=== PATIENT | female | born 1985 | race Caucasian/White ===

== ENCOUNTER 2017-12-30 14:15 | Emergency (ER) | payer OTHER ==
--- NOTE | 2017-12-30 14:20 | PDOC ---
Attending Attestation - Resident Resident Name: Alexandru Duran - ED Attending Attestation I have performed the following: I have examined & evaluated the patient, The case was reviewed & discussed with the resident, I agree w/resident's findings & plan, Exceptions are as noted - HPI HPI: 12/30/17 15:56 Ms Epstein is a 32 yo F h/o eclampsia/HELPP, resultant HTN, h/o CHF and renal insufficiency She has a longstanding ho constipation She presents today with intermittent, worsening, LUQ/LLQ abdominal pain. Pain is sharp/pressure, rated 7/10, no exacerbating or alleviating factors One episode of emesis No fevers/chills, chest pain, SOB, or changes in sensation. The patient reports a recent UTI which was treated - Physicial Exam PE: 12/30/17 16:00 GENERAL: The patient is in no acute distress. LUNGS: Breath sounds equal, clear to auscultation bilaterally. No wheezes, and no crackles. HEART:Regular rate and rhythm, normal S1 and S2 without murmur, rub or gallop. ABDOMEN: Soft, diffusely tender to palpation, worse on the left side of the abdomen EXTREMITIES: Normal range of motion NEUROLOGICAL: Cranial nerves II through XII grossly intact. Normal speech. No focal neurological deficits. MUSCULOSKELETAL: Back non-tender to palpation, no CVA tenderness SKIN: Warm, Dry, normal turgor, no rashes or lesions noted. - Medical Decision Making 12/30/17 16:01 Laboratory Tests 12/30/17 12/30/17 12/30/17 15:18 15:18 15:18 WBC 6.3 Hgb 14.1 Hct 42.1 Plt Count 244 BUN 18 Creatinine 0.9 Urine Blood Negative Urine Nitrite Negative Ur Leukocyte Esterase Negative Urine HCG, Qual 12/30/17 15:18 WBC Hgb Hct Plt Count BUN Creatinine Urine Blood Urine Nitrite Ur Leukocyte Esterase Urine HCG, Qual Negative Pending CT CT demonstrates no diverticulitis, no obstruction Will discharge to home Follow up with PMD Continue bowel regimen Clinical impression: constipation, initial presentation Abdominal pain, initial presentation
--- NOTE | 2017-12-30 14:25 | PDOC ---
History of Present Illness - General Chief Complaint: Pain Stated Complaint: ABDOMINAL PAIN - History of Present Illness Initial Comments: The patient is 32F with a hx of eclampsia/HELPP, subsequent acute CHF, and residual HTN who presents for 3 days of intermittent, worsening, LUQ abdominal pain that radiates towards the rest of the abdomen. The patient describes the pain as sharp/pressure and she has not noticed anything that aggravates/ alleviates the pain. The patient endorses NBNB emesis x1 today. The patient denies fevers/chills, chest pain, SOB, or changes in sensation. The patient reports constipation chronically but has not been taking her fiber/miralax. The patient reports that her stool is pellet-like. The patient reports a recent UTI which was treated 12/30/17 14:23 Past History - Past Medical History Allergies/Adverse Reactions: Allergies Allergy/AdvReac Type Severity Reaction Status Date / Time topiramate Allergy Severe Nausea Verified 12/30/17 14:20 doxazosin Allergy Intermediate Itching Verified 12/30/17 14:17 lisinopril Allergy Intermediate Hives Verified 12/30/17 14:18 Home Medications: Ambulatory Orders Carvedilol 25 mg PO BID 12/30/17 Hydralazine HCl 50 mg PO BID 12/30/17 Losartan Potassium 50 mg PO BID 12/30/17 Nifedipine [Procardia Xl] 30 mg PO BID 12/30/17 Simethicone 125 mg PO DAILY PRN 10 Days #10 capsule 12/30/17 Review of Systems - Review of Systems Able to Perform ROS?: Yes Comments:: GENERAL/CONSTITUTIONAL: No fever or chills. No weakness HEAD, EYES, EARS, NOSE AND THROAT: No change in vision. No ear pain or discharge. No sore throat CARDIOVASCULAR: No chest pain or shortness of breath RESPIRATORY: No cough, wheezing, or hemoptysis GASTROINTESTINAL: per HPI GENITOURINARY: No dysuria, frequency, or change in urination MUSCULOSKELETAL: No joint or muscle swelling or pain. No neck or back pain SKIN: No rash_ NEUROLOGIC: No headache, vertigo, loss of consciousness, or change in strength/ sensation ENDOCRINE: No increased thirst. No abnormal weight change HEMATOLOGIC/LYMPHATIC: No anemia, easy bleeding, or history of blood clots ALLERGIC/IMMUNOLOGIC: No hives or skin allergy 12/30/17 14:24 Is the patient limited Mongolian proficient: No *Physical Exam - Physical Exam Comments: GENERAL: Awake, alert, and fully oriented, in no acute distress HEAD: No signs of trauma, normocephalic, atraumatic EYES: PERRL, EOMI, sclera anicteric, conjunctiva clear ENT: Auricles normal inspection, hearing grossly normal, nares patent, oropharynx clear without exudates. Moist mucosa NECK: Normal ROM, supple, no lymphadenopathy LUNGS: No distress, speaks full sentences, clear to auscultation bilaterally HEART:Regular rate and rhythm, normal S1 and S2, no murmurs appreciated, peripheral pulses normal and equal bilaterally ABDOMEN: Soft, LUQ/LLQ TTP with diffuse abdominal TTP, normoactive bowel sounds. No guarding, no rebound EXTREMITIES : Normal inspection, Normal range of motion, no edema. No clubbing or cyanosis NEUROLOGICAL: Cranial nerves II through XII grossly intact. Normal speech, normal gait, no focal sensorimotor deficits SKIN: Warm, Dry, normal turgor, no rashes or lesions noted 12/30/17 14:25 ED Treatment Course - LABORATORY CBC & Chemistry Diagram: 12/30/17 15:18 12/30/17 15:18 Medical Decision Making - Medical Decision Making The patient is 32F with a hx of eclampsia/HELPP, subsequent acute CHF, and residual HTN who presents for 3 days of intermittent, worsening, LUQ abdominal pain that radiates towards the rest of the abdomen. ED Course CMP, CBC, Lipase, Amylase, UA/UCx, Upreg CT w/ PO contrast 12/30/17 15:17 No evidence of UTI on UA No leukocytosis 12/30/17 17:51 CT without evidence acute intra-abdominal pathology Plan for DC w/ PCP f/u Plan discussed with patient who is in agreement and verbalized understanding Counseling provided pertaining to her bowel regimen Dispo: Home 12/30/17 18:33 *DC/Admit/Observation/Transfer Diagnosis at time of Disposition: Abdominal pain Qualifiers: Abdominal location: left upper quadrant Qualified Code(s): R10.12 - Left upper quadrant pain - Discharge Dispostion Disposition: HOME Condition at time of disposition: Stable Decision to Admit order: No - Referrals Referrals: Denny Del Toro [Other] - Patient Instructions Printed Discharge Instructions: DI for Abdominal Pain-Adult, DI for Constipation Additional Instructions: You were seen in the Emergency Room today for abdominal pain. Please review the handout provided at discharge. Please maintain your bowel regimen at home including the fiber, miralax daily. Follow up with your primary care doctor within the next 1-3 days. Return to the Emergency Department if you develop fevers, worsening pain, or new concerning symptoms. - Post Discharge Activity
[2017-12-30 14:57] VITALS: BMI 20.8
[2017-12-30 15:26] LABS: PH,URINE 5.5 (4.5-8); URINE APPEARANCE Clear; URINE BILIRUBIN Negative (NEGATIVE); URINE COLOR Brown; URINE GLUCOSE (UA) Negative (NEGATIVE); URINE KETONE Negative (NEGATIVE); URINE LEUK ESTERASE Negative (NEGATIVE); URINE NITRITE Negative (NEGATIVE); URINE UROBILINOGEN 0.2 (0.2-1.0)
[2017-12-30 15:27] LABS: URINE PROTEIN 3+ (NEGATIVE)
[2017-12-30 15:39] LABS: ALK PHOS 50 U/L (32-92); AMYLASE 82 U/L (25-125); ANION GAP 7 MMOL/L (8-16); BILIRUBIN,TOTAL 0.7 mg/dl (0.2-1.0); BLOOD UREA NITROGEN 18 mg/dl (7-18); CALCIUM 8.8 mg/dl (8.4-10.2); CHLORIDE 106 mmol/L (98-107); CO2 21 mmol/L (22-28); CREATININE 0.9 mg/dl (0.6-1.3); GLUCOSE,RANDOM 94 mg/dl (74-106); POTASSIUM 3.8 mmol/L (3.5-5.1); SGOT/AST 19 U/L (10-42); SGPT/ALT 22 U/L (10-40); SODIUM 134 mmol/L (136-145); TOT PROT 6.8 g/dl (6.4-8.3)
[2017-12-30 15:44] LABS: EOS % 3.4 % (0-4.5); HEMATOCRIT 42.1 % (32.4-45.2); HEMOGLOBIN 14.1 GM/dl (10.7-15.3); LYMPH % 25.6 % (8-40); MCH 31.1 pg (25.7-33.7); MCHC 33.5 g/dl (32.0-36.0); MEAN CELL VOLUME 92.9 fl (80-96); MEAN PLT VOLUME 9.1 fl (7.5-11.1); MONO % 7.6 % (3.8-10.2); NEUT % 62.4 % (42.8-82.8); PLATELET COUNT 244 K/MM3 (134-434); RBC 4.53 M/mm3 (3.60-5.2); RDW 12.1 % (11.6-15.6); WHITE BLOOD COUNT 6.3 K/mm3 (4.0-10.8)
[2017-12-30 16:39] LABS: EPI CELLS FEW /HPF; URINE BACTERIA FEW /hpf (NEGATIVE); URINE RBC 0-1 /hpf (0-3); URINE WBC 0-2 (0-5)
[2017-12-30 17:50] LABS: LIPASE 225 U/L (73-393)
[2017-12-30 18:00] VITALS: BP 111/74; PULSE 84; TEMP 98.5
== END 2017-12-30 18:45 | disposition home or self-care (01) ==
LOC: FER 14:15
DX: R10.12 Left upper quadrant pain (principal); I10 Essential (primary) hypertension; I50.9 Heart failure, unspecified
CPT/HCPCS: 36415; 74176-TC; 80053; 81003; 81015; 82150; 83690; 84703; 85025; 87086; 99283-25

== ENCOUNTER 2019-01-05 18:56 | Emergency (ER) | payer OTHER ==
[2019-01-05 19:01] VITALS: BMI 20.5
[2019-01-05] MEDS ORDERED: KETOROLAC TROMETHAMINE 30 MG/1 ML VIAL IVPUSH ONE (21:03)
[2019-01-05] MEDS ORDERED: KETOROLAC TROMETHAMINE 60 MG/2 ML VIAL ONE (21:06)
[2019-01-05] MEDS ORDERED: cloNIDine HCL 0.1 MG TABLET ONE (21:06)
[2019-01-05] MEDS ORDERED: hydrALAZINE HCL 25 MG TABLET (FP) PO ONE (21:17)
[2019-01-05] MEDS ORDERED: KETOROLAC TROMETHAMINE 60 MG/2 ML VIAL IM ONE (21:26)
[2019-01-05] MEDS ORDERED: cloNIDine HCL 0.1 MG TABLET PO ONE (22:25)
[2019-01-05] MEDS ORDERED: HYDROmorphone HCL CARPU-JECT 1 MG/1 ML DISP.SYRIN IM ONE (22:26)
[2019-01-05] MEDS ORDERED: HYDROmorphone HCL CARPU-JECT 1 MG/1 ML DISP.SYRIN ONE (22:34)
[2019-01-05 23:06] VITALS: BP 147/110; PULSE 77; TEMP 98.3
--- NOTE | 2019-01-06 00:33 | PDOC ---
Documentation entered by Carmen Gonzalez SCRIBE, acting as scribe for Leatha Ivan MD. Leatha Ivan MD: This documentation has been prepared by the Lisa khanna Renju, SCRIBE, under my direction and personally reviewed by me in its entirety. I confirm that the documentation accurately reflects all work, treatment, procedures, and medical decision making performed by me. History of Present Illness - General Chief Complaint: Blood Pressure Problem Stated Complaint: HEADACHE, HTN Time Seen by Provider: 01/05/19 19:23 History Source: Patient, Spouse Exam Limitations: No Limitations - History of Present Illness Initial Comments: 01/05/19 19:54 The patient is a 33 year old female with a past medical history of eclampsia/ HELPP, subsequent acute CHF, and hypertension who presents to the emergency department for evaluation of worsening headache since 12pm. Patient reports acute onset of severe non-exertional headache ranked 10/10 in severity described as a constant pressure and throbbing since noon. She notes her headache is exacerbated with light and loud noises. Patient reports associated symptoms of diaphoresis, dizziness, subjective fever, nausea, bilateral lower extremity edema, and felt intermittent episodes of shortness of breath since noon. She reports taking fioricet and 2 excedrin which did not alleviate her pain, which she notes usually aids with her migraines, prompting her to leave work at 630pm to visit the ED for further evaluation. Patient states she follows up with her neurologist every 3 months for botox injections secondary to her migraines with her last visit being 3 weeks ago. She states she followed up with her PCP 1 month ago. Patient states she has been compliant with all of her blood pressure medications. Denies aphasia, word recall problems, recent sick contact, changes to medication , stiff neck, or rash. Denies chest pain, vomiting, diarrhea, and constipation. Denies urinary urgency/frequency, dysuria, and hematuria. Allergies: Topiramate, doxazosin, lisinopril Social History: No reported EtOH, cigarette, or drug use. Surgical History: Hernia, reconstructive surgery after childbirth, PCP: Dr. Rothman Past History - Past Medical History Allergies/Adverse Reactions: Allergies Allergy/AdvReac Type Severity Reaction Status Date / Time topiramate Allergy Severe Nausea Verified 01/05/19 19:04 doxazosin Allergy Intermediate Itching Verified 01/05/19 19:04 lisinopril Allergy Intermediate Hives Verified 01/05/19 19:04 Home Medications: Ambulatory Orders Carvedilol 25 mg PO BID 12/30/17 Hydralazine HCl 50 mg PO BID 12/30/17 Losartan Potassium 50 mg PO BID 12/30/17 Nifedipine [Procardia Xl] 60 mg PO DAILY 12/30/17 COPD: No HTN: Yes Other medical history: KID FAILURE,HEART FAILURE - Surgical History Abdominal Surgery: Yes (HERNIA RECONSTUCTIVE SURGERY AFTER CHILD ) - Suicide/Smoking/Psychosocial Hx Smoking History: Never smoked Hx Alcohol Use: No Drug/Substance Use Hx: No Substance Use Type: Alcohol Review of Systems - Review of Systems Able to Perform ROS?: Yes Comments:: 01/05/19 19:55 All systems are reviewed and negative except as noted in the HPI. *Physical Exam - Vital Signs Last Vital Signs Temp Pulse Resp BP Pulse Ox 97.9 F 89 17 148/106 H 100 01/05/19 18:57 01/05/19 18:57 01/05/19 18:57 01/05/19 19:13 01/05/19 18:57 - Physical Exam Comments: 01/05/19 19:55 GENERAL: The patient is awake, alert, and fully oriented, in no acute distress. HEAD: Normal with no signs of trauma. EYES: (+)Pupils 3mm equal briskly reactive, extraocular movements intact, sclera anicteric, conjunctiva clear with no pallor. ENT: Ears normal, nares patent, oropharynx clear without exudates. Moist mucous membranes. NECK: Normal range of motion, supple without lymphadenopathy, JVD, or masses. LUNGS: Breath sounds equal, clear to auscultation bilaterally. No wheeze/ crackles. HEART: Regular rate and rhythm, normal S1 and S2 without murmur or rub. ABDOMEN: Soft/nontender/nondistended. BS wnl. No guarding or rebound. No palpable masses. No hepatosplenomegaly. EXTREMITIES: Normal range of motion, no edema. No clubbing or cyanosis. No cords, erythema, or tenderness. NEUROLOGICAL: Cranial nerves II through XII grossly intact. Normal speech, normal gait. No neurological deficits. PSYCH: Normal mood, normal affect. SKIN: Warm, Dry, normal turgor, no rashes or lesions noted. Medical Decision Making - Medical Decision Making As noted above, this 33-year-old woman with a history of eclampsia and subsequent hypertension presents with a one-day history of headache and elevated blood pressure. Patient also has a history of migraine headaches( Botox injections every 3 months), although this headache is bilateral and more severe than her usual migraines. She typically takes Fioricet for her migraine headaches; she states that this was ineffective for the pain that she is feeling today. She states that she takes her antihypertensive medications daily except for the nifedipine which she believes may give her headaches. Exam is noted Because of the patient's elevated blood pressure and unusual quality of the headache, noncontrast head CT was performed prior to treatment of the headache pain. Interpretation of the noncontrast head CT by Dr. Can of the radiology staff : No intracranial bleed or other acute abnormality. Patient was given Toradol 60 mg IM along with hydralazine 25 mg by mouth.. After approximately 45 minutes, the patient noted some decrease in pain although she still had significant headache. She was then given Dilaudid 1 mg IM (which patient states "usually needs to be given to me when I have bad headaches"). Clonidine 0.1 mg given orally. Patient had significant decrease in her headache pain after IM Dilaudid. Blood pressure was measured at 147/110 millimeters mercury, significantly lower than it had been. Patient feels good enough to be discharged home in the company of her . 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 Meanwhile, she should take her high blood pressure medications as previously prescribed and return to ER if she has persistent severe headache or persistently elevated blood pressure. Also, if she has lightheadedness, shortness of breath or palpitations, she should return to the emergency room *DC/Admit/Observation/Transfer Diagnosis at time of Disposition: Migraine Qualifiers: Migraine type: unspecified Status migrainosus presence: without status migrainosus Intractability: not intractable Qualified Code(s): G43.909 - Migraine, unspecified, not intractable, without status migrainosus Hypertension Qualifiers: Hypertension type: unspecified Qualified Code(s): I10 - Essential (primary) hypertension - Discharge Dispostion Disposition: HOME Condition at time of disposition: Stable Decision to Admit order: No - Referrals Referrals: Polyakova,Joyce, MD [Primary Care Provider] - - Patient Instructions Printed Discharge Instructions: Migraine -- Adult Additional Instructions: Continue your high blood pressure medications as previously prescribed Call your manufacturing group leader in the morning and follow-up within the next 48 hours Return to ER if you have severe headache or shortness of breath, lightheadedness - Post Discharge Activity Forms/Work/School Notes: Back to Work
--- NOTE | 2019-01-06 11:19 | EKG ---
Test Reason : Blood Pressure : / mmHG Vent. Rate : 073 BPM Atrial Rate : 073 BPM P-R Int : 172 ms QRS Dur : 072 ms QT Int : 394 ms P-R-T Axes : 065 098 065 degrees QTc Int : 434 ms NORMAL SINUS RHYTHM POSSIBLE LEFT ATRIAL ENLARGEMENT RIGHTWARD AXIS BORDERLINE ECG NO PREVIOUS ECGS AVAILABLE Confirmed by DANYEL APPIHA, AMA ([id number]) on 01/06/2019 11:18:45 AM Referred By: DR PATEL Confirmed By:AMA MONTAÑO MD
== END 2019-01-05 23:33 | disposition home or self-care (01) ==
LOC: FER 18:56
PROC: 3E023NZ Introduction of Analgesics, Hypnotics, Sedatives into Muscle, Percutaneous Approach (ICD-10-PCS; principal; 2019-01-05)
DX: G43.909 Migraine, unspecified, not intractable, without status migrainosus (principal); I10 Essential (primary) hypertension; I50.9 Heart failure, unspecified; N19 Unspecified kidney failure; Z88.9 Allergy status to unspecified drugs, medicaments and biological substances
CPT/HCPCS: 70450-TC; 84703; 93005; 99282-25